=== PATIENT | male | born 1990 | race African-American/Black ===

== ENCOUNTER 2017-05-22 18:08 | Emergency (ER) | payer SELFPAY ==
[~2017-05-22] VITALS: Ht 175.3 cm; Wt 97.3 kg
[2017-05-22 22:47] VITALS: BP 142/97
== END 2017-05-22 22:48 | disposition home or self-care (01) ==
LOC: EME 18:08
DX: S05.02XA Injury of conjunctiva and corneal abrasion without foreign body, left eye, initial encounter (principal); X58.XXXA Exposure to other specified factors, initial encounter
CPT/HCPCS: 99281; 99284